=== PATIENT | male | born 1970 | race Caucasian/White ===

== ENCOUNTER 2021-08-24 14:30 | Emergency (ER) | payer SELFPAY ==
[~2021-08-24] VITALS: Ht 172 cm; Wt 63.9 kg
[2021-08-24 15:09] VITALS: BP 138/110
[2021-08-24 15:22] LABS: CLARITY,URINE CLEAR; COLOR,URINE YELLOW; GLUCOSE, URINE (UA) NEGATIVE (NEGATIVE); KETONES,URINE NEGATIVE (NEGATIVE); LEUKOCYTE ESTERASE ,URINE TRACE (NEGATIVE); NITRITE,URINE NEGATIVE (NEGATIVE); PH,URINE 5.5 (5-9); PROTEIN,URINE 1+ (NEGATIVE)
--- NOTE | 2021-08-24 15:23 | ED GU-Male ---
General Chief Complaint: Abdominal/GI Problems Stated Complaint: ABD PAIN,DIFFICULTY URINATING Nursing Triage Note: PT PRESENTS TO ED VIA POV FROM HOME WITH COMPLAINTS OF 2 WEEKS OF LOWER ABDOMINAL PAIN, DIFFICULTY WITH URINATION, WEAK STREAM. Source: patient Exam Limitations: no limitations History of Present Illness Date Seen by Provider: Aug 24, 2021 Time Seen by Provider: 15:20 Initial Comments Patient is a 51-year-old male who presents ED with decreased urine output with increased urine urgency. symptoms over the past 2 weeks. He states every time he urinates he is noted decreased urine output. Reports scrotum pain, tenderness more notable with urination. Suprapubic discomfort. Currently sexually active. Not concern for sexual transmitted infection. Patient denies history of similar symptoms. Denies nausea, chest pain, shortness of breath, vomiting or fever, chills. He states he has a history of constipation. States he may feel constipated but denies of any mid upper abdominal discomfort. Allergies and Home Medications Patient Home Medication List Home Medication List Reviewed: Yes Cephalexin (Cephalexin) 500 Mg Tablet, 500 MG PO TID Prescribed by: NGOC MONROY on 08/24/21 2731 Review of Systems Review of Systems Constitutional: No chills, No diaphoresis, No malaise EENTM: No vision loss, No mouth pain, No throat pain, No throat swelling Respiratory: No cough, No short of breath, No wheezing Cardiovascular: No chest pain Gastrointestinal: abdominal pain; No diarrhea, No nausea, No vomiting Genitourinary: burning, pain, urgency Musculoskeletal: No back pain, No joint pain Skin: No change in color, No change in hair/nails Psychiatric/Neurological: Denies Anxiety, Denies Depressed All Other Systemes Reviewed Negative Unless Noted: Yes Past Uuzjjci-Eyhvst-Mzcjuo Hx Patient Social History Tobacco Use?: Yes Tobacco type used: Cigarettes Smoking Status: Current Everyday Smoker Substance use?: Yes Substance type: Marijuana Alcohol Use?: Yes Alcohol type: Beer Alcohol Frequency: Couple times a week Pt feels they are or have been: No Past Medical History Surgery/Hospitalization HX: SX: FACIAL RECONSTRUCTION, L LEG, L SHOULDER Physical Exam Vital Signs Vital Signs - First Documented 08/24/21 15:09 Temp 36.8 Pulse 105 Resp 18 B/P (MAP) 138/110 (119) Pulse Ox 99 Capillary Refill : Less Than 3 Seconds Height, Weight, BMI Height: '" Weight: lbs. oz. kg; 21.00 BMI Method: General Appearance: WD/WN, no apparent distress HEENT: PERRL/EOMI, normal ENT inspection, TMs normal Neck: non-tender, full range of motion Cardiovascular: normal peripheral pulses, regular rate, rhythm, no edema, no gallop Respiratory: chest non-tender, lungs clear, normal breath sounds Gastrointestinal: normal bowel sounds, non tender, soft, no organomegaly Male: testicular tenderness Back: normal inspection, no CVA tenderness, no vertebral tenderness Extremities: normal range of motion, non-tender, normal inspection, no pedal edema Progress/Results/Core Measures Suspected Sepsis SIRS Temperature: Pulse: 105 Respiratory Rate: 18 Laboratory Tests 08/24/21 16:18: White Blood Count 11.0 Blood Pressure 138 /110 Mean: 119 Laboratory Tests 08/24/21 16:18: Creatinine 1.13, Platelet Count 315, Total Bilirubin 0.8 Results/Orders Lab Results Laboratory Tests Test 08/24/21 15:09 08/24/21 16:18 Range/Units Urine Color YELLOW Urine Clarity CLEAR Urine pH 5.5 5-9 Urine Specific Startex >=1.030 1.016-1.022 Urine Protein 1+ H NEGATIVE Urine Glucose (UA) NEGATIVE NEGATIVE Urine Ketones NEGATIVE NEGATIVE Urine Nitrite NEGATIVE NEGATIVE Urine Bilirubin NEGATIVE NEGATIVE Urine Urobilinogen 0.2 < = 1.0 MG/DL Urine Leukocyte Esterase TRACE H NEGATIVE Urine RBC (Auto) TRACE-I H NEGATIVE Urine RBC 0-2 /HPF Urine WBC 5-10 H /HPF Urine Squamous Epithelial Cells NONE /HPF Urine Crystals PRESENT H /LPF Urine Amorphous Sediment FEW SAUL URATES H /LPF Urine Bacteria FEW H /HPF Urine Casts PRESENT /LPF Urine Hyaline Casts 0-2 H /LPF Urine Mucus SMALL H /LPF Urine Culture Indicated YES White Blood Count 11.0 4.3-11.0 10^3/uL Red Blood Count 5.50 4.30-5.52 10^6/uL Hemoglobin 17.7 13.3-17.7 g/dL Hematocrit 51 40-54 % Mean Corpuscular Volume 92 80-99 fL Mean Corpuscular Hemoglobin 32 25-34 pg Mean Corpuscular Hemoglobin Concent 35 32-36 g/dL Red Cell Distribution Width 11.4 10.0-14.5 % Platelet Count 315 130-400 10^3/uL Mean Platelet Volume 8.7 L 9.0-12.2 fL Immature Granulocyte % (Auto) 0 % Neutrophils (%) (Auto) 49 42-75 % Lymphocytes (%) (Auto) 34 12-44 % Monocytes (%) (Auto) 14 H 0-12 % Eosinophils (%) (Auto) 3 0-10 % Basophils (%) (Auto) 1 0-10 % Neutrophils # (Auto) 5.4 1.8-7.8 10^3/uL Lymphocytes # (Auto) 3.7 1.0-4.0 10^3/uL Monocytes # (Auto) 1.5 H 0.0-1.0 10^3/uL Eosinophils # (Auto) 0.3 0.0-0.3 10^3/uL Basophils # (Auto) 0.1 0.0-0.1 10^3/uL Immature Granulocyte # (Auto) 0.0 0.0-0.1 10^3/uL Sodium Level 137 135-145 MMOL/L Potassium Level 4.4 3.6-5.0 MMOL/L Chloride Level 101 98-107 MMOL/L Carbon Dioxide Level 23 21-32 MMOL/L Anion Gap 13 5-14 MMOL/L Blood Urea Nitrogen 17 7-18 MG/DL Creatinine 1.13 0.60-1.30 MG/DL Estimat Glomerular Filtration Rate 68 BUN/Creatinine Ratio 15 Glucose Level 105 70-105 MG/DL Calcium Level 10.2 H 8.5-10.1 MG/DL Corrected Calcium 8.5-10.1 MG/DL Total Bilirubin 0.8 0.1-1.0 MG/DL Aspartate Amino Transf (AST/SGOT) 36 H 5-34 U/L Alanine Aminotransferase (ALT/SGPT) 54 0-55 U/L Alkaline Phosphatase 71 40-136 U/L Total Protein 8.6 H 6.4-8.2 GM/DL Albumin 4.7 H 3.2-4.5 GM/DL Lipase 13 8-78 U/L My Orders Orders - TENA GIRON Cbc With Automated Diff (08/24/21 15:18) Comprehensive Metabolic Panel (08/24/21 15:18) Lipase (08/24/21 15:18) Neis Morales Dna Urine Test (08/24/21 15:18) Chlamydia Trachomatis Urine (08/24/21 15:18) Us Scrotum (Testicle) [id number] (08/24/21 15:18) Bladder Scan (08/24/21 15:19) Bladder Scan (08/24/21 15:23) Vital Signs/I&O 08/24/21 15:09 Temp 36.8 Pulse 105 Resp 18 B/P (MAP) 138/110 (119) Pulse Ox 99 Capillary Refill : Less Than 3 Seconds Blood Pressure Mean: 119 Departure Communication (Admissions) Patient with bilateral testicle tenderness. No swelling, erythema. No inguinal lymphadenopathy. No palpable mass. Ultrasound was negative for acute abnormality. Urinalysis concerning for UTI. Patient reports a decreased urination but is able to produce urine. Bladder scan did not show any urine in his bladder. Does not appear to have a full bladder at this time suggesting outlet obstruction. Patient lab work otherwise unremarkable. Will discharge with Keflex with outpatient follow-up. Return precautions were discussed with patient. STD cultures pending. He is not concern for sexual transmitted infection and did not want to be treated prophylactically. Cultures pending. Neurology outpatient follow-up for further evaluation. Discussed symptoms could be related to prostatitis but he is not having much perineum pain. Further evaluation as needed Impression Primary Impression: UTI (urinary tract infection) Disposition: 01 HOME, SELF-CARE Condition: Stable Departure-Patient Inst. Decision time for Depature: 16:57 Ref[place]: [facility] [place] PHYSICIAN ([place]P) Primary Care Physician CLAY CHRIS MD Patient Instructions: Urinary Tract Infections in Adults Scripts Cephalexin (Cephalexin) 500 Mg Tablet 500 MG PO TID for 10 Days, #30 TAB Prov: TENA GIRON 08/24/21 TENA GIRON Aug 24, 2021 15:23
[2021-08-24 15:34] LABS: AMORPHOUS SEDIMENT,UR FEW AMOR URATES /LPF; BACTERIA,URINE FEW /HPF; BILIRUBIN,URINE NEGATIVE (NEGATIVE); HYALINE CASTS, URINE 0-2 /LPF; RBC,URINE 0-2 /HPF
--- NOTE | 2021-08-24 16:13 | Diagnostic Imaging Report ---
PROCEDURE: US Scrotum. TECHNIQUE: Multiple real-time grayscale images were obtained over the scrotum in various projections bilaterally. INDICATION: Testicular pain and swelling. FINDINGS: Right testicle measures 4.3 x 2.6 x 3.2 cm. Left testicle measures 4.3 x 1.9 x 3.0 cm. The testes have homogeneous echogenicity with normal blood flow. The epididymides appear normal. There is no varicocele or hydrocele. IMPRESSION: Unremarkable scrotal ultrasound. Dictated by: Dictated on workstation # [id number]
[2021-08-24 16:24] LABS: BASOPHILS # (AUTO) 0.1 10^3/uL (0.0-0.1); BASOPHILS % (AUTO) 1 % (0-10); EOSINOPHILS # (AUTO) 0.3 10^3/uL (0.0-0.3); EOSINOPHILS % (AUTO) 3 % (0-10); HEMATOCRIT 51 % (40-54); HEMOGLOBIN 17.7 g/dL (13.3-17.7); LYMPHOCYTES # (AUTO) 3.7 10^3/uL (1.0-4.0); LYMPHOCYTES % (AUTO) 34 % (12-44); MEAN CORPUSCULAR HEMOGLOBIN 32 pg (25-34); MEAN CORPUSCULAR HGB CONC 35 g/dL (32-36); MEAN CORPUSCULAR VOLUME 92 fL (80-99); MEAN PLATELET VOLUME 8.7 fL (9.0-12.2); MONOCYTES # (AUTO) 1.5 10^3/uL (0.0-1.0); MONOCYTES % (AUTO) 14 % (0-12); NEUTROPHILS # (AUTO) 5.4 10^3/uL (1.8-7.8); NEUTROPHILS % (AUTO) 49 % (42-75); PLATELET COUNT 315 10^3/uL (130-400)
[2021-08-24 16:44] LABS: ALBUMIN 4.7 GM/DL (3.2-4.5); CHLORIDE 101 MMOL/L (98-107); POTASSIUM 4.4 MMOL/L (3.6-5.0); SODIUM 137 MMOL/L (135-145)
[2021-08-24 16:45] LABS: CALCIUM 10.2 MG/DL (8.5-10.1)
[2021-08-24 16:46] LABS: GLUCOSE 105 MG/DL (70-105)
[2021-08-24 16:47] LABS: TOTAL PROTEIN 8.6 GM/DL (6.4-8.2)
[2021-08-24 16:48] LABS: BILIRUBIN,TOTAL 0.8 MG/DL (0.1-1.0); CARBON DIOXIDE 23 MMOL/L (21-32)
[2021-08-24 16:50] LABS: ALKALINE PHOSPHATASE 71 U/L (40-136); CREATININE SERUM 1.13 MG/DL (0.60-1.30); GFR ESTIMATED 68
[2021-08-24 16:51] LABS: BUN/CREATININE RATIO 15
[2021-08-24 16:53] LABS: ALANINE AMINOTRANSFERASE 54 U/L (0-55)
[2021-08-24 16:54] LABS: LIPASE 13 U/L (8-78)
[2021-08-24] MEDS ORDERED: CEPH500T PO (16:58)
== END 2021-08-24 17:32 | disposition home or self-care (01) ==
LOC: ER 14:33
DX: N39.0 Urinary tract infection, site not specified (principal); F17.210 Nicotine dependence, cigarettes, uncomplicated
CPT/HCPCS: 36415; 76870; 80053; 81000; 83690; 85025; 87088; 87491; 87591